=== PATIENT | male | born 1975 | race Caucasian/White ===

== ENCOUNTER 2018-11-20 12:31 | Emergency (ER) | payer OTHER ==
[~2018-11-20] VITALS: Ht 185.4 cm; Wt 99.6 kg
[2018-11-20 12:47] VITALS: BP 121/83
[2018-11-20] MEDS ORDERED: METH-360 PO (14:03)
[2018-11-20] MEDS ORDERED: DIAZ-351 PO (14:03)
[2018-11-20] MEDS ORDERED: PRED20TA PO (14:03)
[2018-11-20] MEDS ORDERED: dexamethasone 4mg tablet PO ONE (14:05)
[2018-11-20] MEDS ORDERED: ketorolac tromethamine 15mg/ml inj. IM ONE (14:05)
== END 2018-11-20 14:25 | disposition home or self-care (01) ==
LOC: ER 12:32
DX: S39.012A Strain of muscle, fascia and tendon of lower back, initial encounter (principal); M54.41 Lumbago with sciatica, right side; M62.830 Muscle spasm of back; Z79.899 Other long term (current) drug therapy; X50.9XXA Other and unspecified overexertion or strenuous movements or postures, initial encounter; Y93.89 Activity, other specified; Y92.89 Other specified places as the place of occurrence of the external cause; Y99.8 Other external cause status
CPT/HCPCS: 96372; 99283; J1885